=== PATIENT | male | born 2005 | race Caucasian/White ===

== ENCOUNTER 2024-11-23 09:29 | Emergency (ER) | payer SELFPAY ==
[~2024-11-23] VITALS: Ht 180.3 cm; Wt 99.8 kg
[2024-11-23] MEDS ORDERED: Acetaminophen/Oxycodone 5 MG/325 MG TABLET PO ONE (10:00)
[2024-11-23] MEDS ORDERED: Sulfamethoxazole/Trimethopri 1 TAB TAB PO ONE (10:00)
[2024-11-23] MEDS ORDERED: Vancomycin Hydrochloride 250 ML IV ONE (10:55)
[2024-11-23] MEDS ORDERED: SODIUM CHLORIDE 0.9% 1,000 ML IV ONE ×3 (10:55)
[2024-11-23] MEDS ORDERED: Piperacillin Sodium/Tazobact 50 ML IV ONE (10:55)
[2024-11-23] MEDS ORDERED: LIDOCAINE HCL/EPINEPHRINE 50 ML VIAL ONE (11:47)
[2024-11-23] MEDS ORDERED: SEPTDS PO (11:58)
== END 2024-11-23 12:03 | disposition home or self-care (01) ==
LOC: ED 09:29
DX: L02.31 Cutaneous abscess of buttock (principal)